=== PATIENT | male | born 1970 | race Caucasian/White ===

== ENCOUNTER 2019-01-26 04:56 | Emergency (ER) | payer SELFPAY ==
[~2019-01-26] VITALS: Ht 167.6 cm; Wt 90.7 kg
--- NOTE | 2019-01-26 04:59 | NUR ---
ED Nurse Note: called pt to be triaged. pt not present at waiting room.
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
[2019-01-26 05:15] VITALS: BP 129/89
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
[2019-01-26] MEDS ORDERED: IBUPROFEN600 MG ORAL (05:50)
[2019-01-26 05:55] VITALS: BP 129/89
--- NOTE | 2019-01-26 05:55 | NUR ---
ER DISCHARGE NOTE: Patient is cleared to be discharged per ERMD, pt is aox4, on room air, with stable vital signs. pt was given dc and prescription instructions, pt was able to verbalize understanding, pt id band removed without complications. pt is able to ambulate with steady gait. pt took all belongings.
--- NOTE | 2019-01-26 09:36 | Diagnostic Imaging Report ---
Indication: Right shoulder pain COMPARISON: None Findings: 3 views of the right shoulder were obtained. No acute fractures, malalignment, erosions or periostitis are identified. Soft tissues are unremarkable. Impression: Negative for acute injury
== END 2019-01-26 05:56 | disposition home or self-care (01) ==
LOC: EMR 05:22
DX: S40.011A Contusion of right shoulder, initial encounter (principal); S90.821A Blister (nonthermal), right foot, initial encounter; V29.9XXA Motorcycle rider (driver) (passenger) injured in unspecified traffic accident, initial encounter; Y92.9 Unspecified place or not applicable
CPT/HCPCS: 99283